=== PATIENT | female | born 1975 | race Caucasian/White ===

== ENCOUNTER 2020-04-13 19:57 | Observation (INO) | payer BC ==
[~2020-04-13] VITALS: Ht 149.9 cm; Wt 61.7 kg
--- NOTE | ~2020-04-13 | EMS ---
[place] [place] [address] EMS Patient Care Report Name: WONG KUMARI Room: [address] M.R.#: [id number] Admission: 04/13/20 Attend Phys: Christiano Sharp MD Discharge: Date of : 75 Report #: [id number] THIS REPORT FOR: //name// Report Transmitted: 04/13/2020 21:18 EMS Care Summary FREYA STALEY Incident [id number] @ 04/13/2020 19:10 Incident Location [address] [address] Patient WONG KUMARI Female, 44 Years 1975 [place] [address] Patient History Unspecified asthma,Anxiety disorder, unspecified, Patient Allergies , Chief Complaint Chest Pain Disposition Transported No Lights/Protem Dispatch Reason Chest Pain (Non-Traumatic) Transported To [facility] Narrative Crew dispatched 911 to pt at urgent care complaining of chest pain. Upon arrival found pt sitting up on exam bed. Pt was not in any distress. Pt stated she took an adult dose of aspirin just prior to ems arrival. Pt stated the chest had been going on for about a month now along with shortness of breath. Pt was placed on the monitor for vitals and a 12 lead was obtained. Pts lung sounds were assessed. Pt asked if she had to go to the hospital and pt was [address] [address] EMS Patient Care Report Name: WONG KUMARI Room: [place] [address] ADM [facility] M.R.#: [id number] Admission: 04/13/20 Attend Phys: Christiano Sharp MD Discharge: Date of : 75 Report #: [id number] informed that the hospital was where more tests could be run and a barn hand could take a look at her 12 lead to have a better diagnosis. Pt stated she would go to the closest hospital by her home and agreed to go to [facility]. Pt walked to [facility] and was secured w/ straps. Pt moved to ambulance. Pt IV access established. Pt transported to [facility] with vitals monitored enroute. Pt stated she has been in contact with a friend that tested positive for covid. Pt stated she has had a sore throat but no cough or fever. Pt report called in to [facility]. Pt moved from [facility] to er bed via self transfer. Pt signed. Pt report given to nurse. Nurse signed. Pt care transferred to nurse. EOR. Initial Vitals @19:25SpO2: 99, @19:26SpO2: 100, @19:40SpO2: 100, @19:40SpO2: 99, @19:48SpO2: 98, @19:23 @19:25P: 61,R: 18,BP: 164/101, @19:26P: 63,R: 18,BP: 145/90, @19:40P: 49,R: 18,BP: 135/84, @19:48P: 60,R: 18,BP: 134/71, @19:25GCS: 15, @19:26GCS: 15, @19:40GCS: 15, @19:48GCS: 15, @19:36Glucose: 93, Assessments @19:18MENTAL:SKIN:HEENT:LUNG SOUNDS:ABDOMEN:PELVIS//GI:EXTREMITIES:PULSE:NEURO: Impression Angina pectoris Procedures @PTAAspirin - 245.000 Milligrams (mg) - Oral@19:35 cc () Site: Antecubital-LeftResponse: UnchangedSucceeded@19:2312-Lead ECGResponse: UnchangedSucceeded Timeline QUALITY CONTROLLER,Aspirin - 245.000 Milligrams (mg) - Oral, 19:09,Call Received 19:09,Dispatch Notified 19:09,Psap Call 19:10,Dispatched 19:10,[place] [address] EMS Patient Care Report Name: KENYETTAWONG LOW ROSARIO Room: [place] [address] ADM [place] M.R.#: [id number] Admission: 04/13/20 Attend Phys: Christiano Sharp MD Discharge: Date of : 75 Report #: [id number] 19:17,On Scene 19:18,At Patient 19:23,12-Lead ECG,Response: UnchangedSucceeded, 19:23,BP: / M,PULSE: ,RR: R,SPO2: Ox,ETCO2: ,BG: ,PAIN: ,GCS: , 19:25,BP: / M,PULSE: ,RR: R,SPO2: 99 Ox,ETCO2: ,BG: ,PAIN: ,GCS: , 19:25,BP: 164/101 M,PULSE: 61,RR: 18 R,SPO2: Ox,ETCO2: ,BG: ,PAIN: ,GCS: , 19:25,BP: / M,PULSE: ,RR: R,SPO2: Ox,ETCO2: ,BG: ,PAIN: ,GCS: 15, 19:26,BP: / M,PULSE: ,RR: R,SPO2: 100 Ox,ETCO2: ,BG: ,PAIN: ,GCS: , 19:26,BP: 145/90 M,PULSE: 63,RR: 18 R,SPO2: Ox,ETCO2: ,BG: ,PAIN: ,GCS: , 19:26,BP: / M,PULSE: ,RR: R,SPO2: Ox,ETCO2: ,BG: ,PAIN: ,GCS: 15, 19:35, cc Site: Antecubital-Left,Response: UnchangedSucceeded, 19:36,BP: / M,PULSE: ,RR: R,SPO2: Ox,ETCO2: ,B,PAIN: ,GCS: , 19:40,BP: / M,PULSE: ,RR: R,SPO2: 100 Ox,ETCO2: ,BG: ,PAIN: ,GCS: , 19:40,BP: / M,PULSE: ,RR: R,SPO2: 99 Ox,ETCO2: ,BG: ,PAIN: ,GCS: , 19:40,BP: 135/84 M,PULSE: 49,RR: 18 R,SPO2: Ox,ETCO2: ,BG: ,PAIN: ,GCS: , 19:40,BP: / M,PULSE: ,RR: R,SPO2: Ox,ETCO2: ,BG: ,PAIN: ,GCS: 15, 19:41,Depart Scene 19:48,BP: / M,PULSE: ,RR: R,SPO2: 98 Ox,ETCO2: ,BG: ,PAIN: ,GCS: , 19:48,BP: 134/71 M,PULSE: 60,RR: 18 R,SPO2: Ox,ETCO2: ,BG: ,PAIN: ,GCS: , 19:48,BP: / M,PULSE: ,RR: R,SPO2: Ox,ETCO2: ,BG: ,PAIN: ,GCS: 15, 19:52,At Destination 20:10,Call Closed Disclaimer v1.1 Copyright 2020 [employer] This EMS Care Summary contains data elements from the applicable legal record (which may be displayed differently). It is designed to provide pertinent information for the following purposes: continuity of care, clinical quality, and state data reporting. The complete legal record is available to ED staff and administrators of the receiving hospital in [employer] Patient Tracker. All data is provided "as is."
[2020-04-13 20:01] VITALS: BP 130/70
[2020-04-13 20:27] LABS: ABSOLUTE BASOPHILS 0.1 thou/uL (0.0-0.2); ABSOLUTE EOSINOPHILS 0.1 thou/uL (0.0-0.7); ABSOLUTE LYMPHOCYTES 2.8 thou/uL (0.8-5.3); ABSOLUTE MONOCYTES 0.8 thou/uL (0.0-1.2); ABSOLUTE NEUTROPHILS 6.9 thou/uL (1.6-8.1); EOSINOPHILS 1.2 %; HEMATOCRIT 40.6 % (37.0-47.0); HEMOGLOBIN 13.7 gm/dL (12.0-15.0); LYMPHOCYTES 26.1 %; MCH 30.7 pg (26.0-34.0); MCHC 33.8 g/dL (28.0-37.0); MCV 90.8 fL (80.0-100.0); MONOCYTES 7.1 %; MPV 8.6 fl. (7.2-11.1); NUCLEATED RBCS 0 /100WBC; PLATELET COUNT* 233 thou/uL (150-400); POLYS 64.6 %; RBC 4.47 mil/uL (4.20-5.00); RDW-CV 13.1 % (10.5-14.5); WBC 10.6 thou/uL (4.0-11.0)
[2020-04-13 20:36] LABS: CALCIUM 9.7 mg/dL (8.5-10.1); CREATININE 0.6 mg/dL (0.6-1.3); POTASSIUM 3.9 mmol/L (3.5-5.1)
[2020-04-13 20:38] LABS: PROTIME 10.5 Seconds (9.20-11.50)
[2020-04-13 20:48] LABS: ALBUMIN 3.8 g/dL (3.4-5.0); MAGNESIUM 2.2 mg/dL (1.8-2.4); TOTAL BILIRUBIN 0.6 mg/dL (<0.1-1.0); TOTAL PROTEIN 7.7 g/dL (6.4-8.2)
[2020-04-13 22:50] VITALS: BP 126/74
[2020-04-14 04:00] VITALS: BP 111/67
[2020-04-14 08:00] VITALS: BP 122/86
--- NOTE | 2020-04-14 11:02 | NUR ---
Pt is A&O. Resides at home with her and kids. Active and independent. No DME. No hx of HH or SNF. Cardiology following. PUI, moving to room 233. No needs anticipated, plan dc in a few days.
[2020-04-14] MEDS ORDERED: CELEBREX 200 M200 M1 PO ×2 (11:06→17:19)
[2020-04-14] MEDS ORDERED: OMEPRAZOLE40 MG PO ×2 (11:06→17:19)
[2020-04-14 12:00] VITALS: BP 123/79
--- NOTE | 2020-04-14 12:44 | EKG ---
[place] [address] ELECTROCARDIOGRAM REPORT Name: WONG KUMARIRIO Room: [address] M.R.#: [id number] Admission: 04/13/20 Attend Phys: Christiano Sharp, Discharge: Date of : 75 Date of Service: 04/13/202000 Report #: [id number] THIS REPORT FOR: //name// [facility] ED Test Date: 2020-04-13 Test Time: 20:01:17 Pat Name: WONG KUMARI Department: Room: [facility] Gender: F Willow Analyst: SIMBA : 1975 Requested By: Yvonne Granda Order Number: [id number] MD: Baljinder Victor Measurements Intervals Beatty Rate: 51 P: 10 NE: 170 QRS: 29 QRSD: 84 T: 27 QT: 424 QTc: 391 Interpretive Statements Sinus rhythm No previous ECG available for comparison Electronically Signed On 04-14-2020 12:44:15 BLOCK TRIMMER by Baljinder Victor [email or web address] <ELECTRONICALLY SIGNED> By: Baljinder Victor MD, FACC 04/14/20 [facility]4 00 00 Baljinder Victor MD, FAC /EPI
[2020-04-14 14:22] LABS: CALCIUM 9.5 mg/dL (8.5-10.1); CREATININE 0.7 mg/dL (0.6-1.3); POTASSIUM 3.7 mmol/L (3.5-5.1)
[2020-04-14 14:26] LABS: MAGNESIUM 2.1 mg/dL (1.8-2.4); PHOSPHORUS* 2.2 mg/dL (2.5-4.9)
--- NOTE | 2020-04-14 16:11 | 2DMMODE ---
[place] [address] 2 D/M-MODE ECHOCARDIOGRAM Name: LYLA KUMARILUDIVINA LOWVIDA Room: [address] [place] Kathleen#: [id number] Admission: 04/13/20 Attend Phys: Christiano Sharp, Discharge: Date of : 75 Date of Service: 04/14/20 1611 Report #: [id number] THIS REPORT FOR: cc: FAM - No family physician/PCP FAM - No family physician/PCP Baljinder Victor MD [facility] ~ APPROVED REPORT Study performed: 04/14/2020 14:37:41 EXAM: Comprehensive 2D, Doppler, and color-flow Echocardiogram Patient Location: In-Patient Room #: 209 Status: routine BSA: 1.57 HR: 45 bpm BP: 111/67 mmHg Rhythm: NSR Other Information Study Quality: Good Indications Chest Pain Echo Enhancing Agent Indication: Rule out Shunt Agent(s) / Amount(s) Used: Agitated Saline 10 cc 2D Dimensions IVSd: 10.10 (7-11mm) LVOT Diam: 19.42 (18-24mm) LVDd: 35.48 mm PWd: 11.22 (7-11mm) Ascending Ao: 29.97 (22-36mm) LVDs: 20.88 (25-40mm) Aortic Root: 30.80 mm Volumes Left Atrial Volume (Systole) LA ESV Index: 22.80 mL/m2 Aortic Valve AoV Peak Jesse.: 1.41 m/s AO Peak Gr.: 7.97 mmHg LVOT Max P.28 mmHg AO Mean Gr.: 3.96 mmHg LVOT Mean P[place]49 [place] [address] 2 D/M-MODE ECHOCARDIOGRAM Name: WONG KUMARI [facility] Room: [address] M.RKamala#: [id number] Admission: 04/13/20 Attend Phys: Christiano Sharp, Discharge: Date of : 75 Date of Service: 04/14/20 1611 Report #: [id number] LVOT Max V: 1.15 m/s AO V2 VTI: 26.73 cm LVOT Mean V: 0.71 m/s JANENE (VTI): 2.95 cm2 LVOT V1 VTI: 26.59 cm Mitral Valve E/A Ratio: 1.49 MV Decel. Time: 209.27 ms MV E Max Jesse.: 0.84 m/s MV PHT: 60.69 ms MVA (PHT): 3.63 cm2 TDI E/Lateral E': 5.25 E/Medial E': 6.46 Medial E' Jesse.: 0.13 m/s Lateral E' Jesse.: 0.16 m/s Pulmonary Valve PV Peak Jesse.: 0.91 m/s PV Peak Gr.: 3.33 mmHg Tricuspid Valve RAP Estimate: 5.00 mmHg TR Peak Gr.: 22.26 mmHg RVSP: 27.00 mmHg PA Pressure: 27.00 mmHg Left Ventricle The left ventricle is normal size. There is normal LV segmental wall motion. There is normal left ventricular wall thickness. Left ventricular systolic function is normal. LVEF is 60-65%. The left ventricular diastolic function is normal. Right Ventricle The right ventricle is normal size. The right ventricular systolic function is normal. Atria The left atrium size is normal. The interatrial septum is intact with no evidence for an atrial septal defect. The right atrium size is normal. Aortic Valve The aortic valve is normal in structure. No aortic regurgitation is present. There is no aortic valvular stenosis. Mitral Valve The mitral valve is normal in structure. There is no mitral valve regurgitation noted. No evidence [place] [address] 2 D/M-MODE ECHOCARDIOGRAM Name: KENYETTAWONG ROSARIO Room: [address] [place] Kathleen#: [id number] Admission: 04/13/20 Attend Phys: Christiano Sharp, Discharge: Date of : 75 Date of Service: 04/14/20 1611 Report #: [id number] Tricuspid Valve The tricuspid valve is normal in structure. Trace tricuspid regurgitation. No pulmonary hypertension. Pulmonic Valve The pulmonary valve is normal in structure. There is no pulmonic valvular regurgitation. Great Vessels The aortic root is normal in size. IVC is normal in size and collapses >50% with inspiration. Pericardium There is no pericardial effusion. <Conclusion> The left ventricle is normal size. There is normal left ventricular wall thickness. Left ventricular systolic function is normal. LVEF is 60-65%. The left ventricular diastolic function is normal. Trace tricuspid regurgitation. No pulmonary hypertension. IVC is normal in size and collapses >50% with inspiration. The interatrial septum is intact with no evidence for an atrial septal defect. <ELECTRONICALLY SIGNED> By: Baljinder Victor MD, FACC 04/14/201610 10 10 Baljinder Victor MD, FACC /INF
[2020-04-14 17:00] VITALS: BP 110/80
[2020-04-14 17:23] VITALS: BP 123/79
[2020-04-14 21:00] VITALS: BP 103/59
--- NOTE | 2020-04-14 22:09 | NUR ---
PT IS RESTING AT THIS TIME.PT CAME FROM URGENT CARE OVERNIGHT WITH CHEST PAIN AND BRONCHITIS. PT HAS HAD 2 RECENT EXPOSURES FROM COVID POSITIVE CLOSE CONTACTS WELL RECENT DENTAL PROCEDURE. STAT WAS NEGATIVE. PCR COLLECTED AND PT TRANFERRED TO NEGATIVE PRESSURE R/T SYMPTOMS AND AEROSOLIZED TREATMENTS. PT REPORTS SYMPTOMS OF: NASAL CONGESTION WITH INFLAMMATION OF NARES, SORE THROAT WITH REDNESS AND SWELLING NOTED, WELL HEADACHE. PT DOES REPORT THAT SHE HAS HAD FLUID "POCKETS" ON OCCIPITAL AND PARIETAL AREAS OF HEAD BETWEEN DERMIS AND SKULL THAT SHE HAS HAD SINCE AGE 13,IS BEING SEEN AT [facility] AND HAS GIVEN VERBAL CONSENT IF MEDICAL RECORDS ARE NEEDED.PT ALSO REPORTS THAT [facility] DOES HAVE AN MRI ON FILE.PT WAS TO DC TO HOME THIS EVENING AFTER REVIEWED ECHO RESULTS AND WOULD FOLLOW UP WITH OUTPATIENT STRESS TEST AFTER COVID RESULTS CAME BACK NEGATIVE OR AFTER COMPLETED QUARANTINE. PT DID NOT FEEL COMFORTABLE WITH DISCHARGING HOME. PT ALSO HAD ELEVATED LACTIC ACID AT 2.5. ORDER OBTAINED FOR FLUIDS. PT EDUCATED ON PLAN OF CARE,QUESTIONS AND CONCERNS ADDRESSED WITH PT ABOUT QUARANTINE PROCESS AND CONCERNS FOR 7 YEAR OLD WITH ASTHMA AT HOME . PT ALSO REPORTED THAT PRESCRIPTIONS THAT WERE SENT TO PHARMACY HAVE BEEN DENIED BY HER INSURANCE. WILL PLACE ORDER FOR CASE MANAGEMENT CONSULT.NOTHING FURTHER.CLWR.WCTM
[2020-04-15 00:49] VITALS: BP 105/51
[2020-04-15 03:20] VITALS: BP 99/47
[2020-04-15 04:48] LABS: ALBUMIN 3.1 g/dL (3.4-5.0); CALCIUM 8.9 mg/dL (8.5-10.1); CREATININE 0.6 mg/dL (0.6-1.3); POTASSIUM 4.1 mmol/L (3.5-5.1); TOTAL BILIRUBIN 0.5 mg/dL (<0.1-1.0); TOTAL PROTEIN 6.3 g/dL (6.4-8.2)
--- NOTE | 2020-04-15 07:35 | NUR ---
Alert and oriented x 4. She is up independently in the room. Vitals have been stable. She is SR to SB on the monitor. She's had a headache,she's afebrile. She denies having a cough. Lungs clear but diminished. Melatonin at bedtime and she slept well.
[2020-04-15 09:24] VITALS: BP 106/58
[2020-04-15] MEDS ORDERED: PREDNISONE 10 M10 MG PO (10:13)
--- NOTE | 2020-04-15 17:20 | NUR ---
PT DISCHARGED AT 1655 WITH NURSING STAFF AND SPOUSE TO HOME. IV OUT. PT STABLE. PRESCRIPTIONS E FAXED. PERSONAL ITEMS SENT WITH PT.
== END 2020-04-15 17:21 | disposition home or self-care (01) ==
LOC: M.ERS 19:57 → M.2W 21:40 → M.TBA-ER 21:40 → M.2W 22:52
PROVIDERS: Emergency Medicine; Internal Medicine; ADMIT Internal Medicine; ATTEND Internal Medicine
DX: R07.89 Other chest pain (principal); K04.7 Periapical abscess without sinus; F11.20 Opioid dependence, uncomplicated; R00.1 Bradycardia, unspecified; F41.9 Anxiety disorder, unspecified; Z79.899 Other long term (current) drug therapy; Z20.828 Contact with and (suspected) exposure to other viral communicable diseases